=== PATIENT | female | born 1965 | race Caucasian/White ===

== ENCOUNTER 2016-11-24 08:56 | Inpatient (IN) | payer BC, MEDICAID ==
[2017-02-02] MEDS ORDERED: Povidone-Iodine 10% Soln 118.25 ML Bottle ONE (06:37)
[2017-02-02] MEDS ORDERED: Thrombin (Bovine) 5,000 Unit Kit ONE (06:37)
[2017-02-02] MEDS ORDERED: Naloxone 0.4 MG/ML SDV IVPUSH PRN (07:59)
[2017-02-02] MEDS ORDERED: HYDROmorphone/Normal Saline 15 MG/30 ML PCA IV PRN (07:59)
[2017-02-02] MEDS ORDERED: Lactated Ringers 1,000 ML IV SCH (08:00)
[2017-02-02] MEDS ORDERED: Naloxone 0.4 MG/ML SDV IV PRN (08:04)
[2017-02-02] MEDS ORDERED: ceFAZolin 2 GM in Sodium Chloride 0.9% 50 ML IV ONE ×2 (08:15→14:00)
[2017-02-02] MEDS ORDERED: ceFAZolin 2 GM in Premix Bag 1 BAG IV ONE (08:15)
[2017-02-02] MEDS ORDERED: Tranexamic Acid 800 MG in Sodium Chloride 0.9% 50 ML IV SCH (09:30)
[2017-02-02] MEDS ORDERED: Succinylcholine/Normal Saline 200 MG/10 ML Syringe ONE (10:06)
[2017-02-02] MEDS ORDERED: Neostigmine Methylsulfate 1 MG/ML 5 ML Syringe ONE (10:06)
[2017-02-02] MEDS ORDERED: Dexamethasone 4 MG/ML SDV ONE (10:06)
[2017-02-02] MEDS ORDERED: fentaNYL 250 MCG/5 ML SDV ONE ×2 (10:06→10:58)
[2017-02-02] MEDS ORDERED: Propofol 200 MG/20 ML SDV ONE (10:06)
[2017-02-02] MEDS ORDERED: Ondansetron 4 MG/2 ML SDV ONE (10:06)
[2017-02-02] MEDS ORDERED: Midazolam 1 MG/ML 2 ML SDV ONE (10:06)
[2017-02-02] MEDS ORDERED: Rocuronium 50 MG/5 ML Vial ONE ×2 (10:06→10:58)
[2017-02-02] MEDS ORDERED: Linezolid 200 MG/100 ML Bag IRR ONE ×2 (10:58→13:00)
[2017-02-02] MEDS: Tranexamic Acid 800 MG in Sodium Chloride 0.9% 50 ML IV SCH ×2 (12:05→13:42)
[2017-02-02] MEDS ORDERED: Lactated Ringers 1,000 ML ONE ×2 (12:34)
[2017-02-02] MEDS ORDERED: Acetaminophen 1,000 MG in Premix Bag 1 BAG IV ONE (13:45)
--- NOTE | 2017-02-02 14:16 | OR ---
DATE OF PROCEDURE: 02/02/2017 PREOPERATIVE DIAGNOSES: L5-S1 spondylolisthesis and foraminal stenosis. POSTOPERATIVE DIAGNOSES: L5-S1 spondylolisthesis and foraminal stenosis. PROCEDURE: 1. Anterior lumbar interbody fusion, L5-S1. 2. Insertion of globus anterior lumbar interbody fusion implant. 3. Use of Xemplifi Plus implant segmental instrumentation, L5-S1 with use of 325 mm screws. INDICATIONS: The patient was seen many months ago. We had trouble getting her in due to insurance approval, as her insurance changed. She had been suffering with back pain for a significant period of time. 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 This was limited in her ability severely, and she was unable to work for some period of time. Preoperative imaging with MRI and plain films confirmed the above-mentioned diagnosis. Risks and benefits of the procedure were explained to the patient. Informed consent was obtained. She was seen by Jason Raedr MD for anterior access. Please see Dr. Rader's note for anterior access. ESTIMATED BLOOD LOSS: Please see Dr. Rader's note. ANESTHESIA: General endotracheal intubation. FLUIDS: Lactated Ringer solution. COMPLICATIONS: None. SPECIMEN: None. DISPOSITION: Stable to PACU. DESCRIPTION OF PROCEDURE: After Dr. Rader performed the access in which it started with a time-out identifying the correct patient, the correct procedure, the correct site, and antibiotics had begun with appropriate period of time as well as sterile Alanis catheter had been placed, and the patient been prepped and draped in a sterile manner. He was able to obtain good access, more on the left side at L5-S1 interspace. I then used Bovie electrocautery to delineate and go through the anulus at L5-S1 medially on the left, but did get across midline. The anulus was removed with the pituitary to use a flat Garcia to go along the vertebral endplates and then removed disk material using pituitaries as well as straight and angled curettes. I used several wedges to distract the disk space and was able to get back to the posterior longitudinal ligament. There was a great deal of disk posteriorly, and this can be seen on the preoperative MRI. We did remove as much disk as possible. I then was able to scrape down to bone on the endplates. We then trialed and then inserted 8 degree 10 mm high implant. This was found to be in good position on AP and lateral fluoroscopy. I then inserted the Magnify torque handle and then used the implant to distract the disk space. We witnessed this on lateral fluoroscopy. After this had been accomplished, the graft was packed. Please note that was also packed prior to insertion, and then an awl, drill, and screws were used to place the screws, 1 up, 2 down. We then took AP and lateral films confirming the implant to be in good position. Please see Dr. Irwin Rader's note for closure. Jitendra Rader DO /[id number]
[2017-02-02] MEDS ORDERED: diphenhydrAMINE 50 MG/ML SDV IVPUSH PRN (14:55)
[2017-02-02] MEDS ORDERED: Methocarbamol 500 MG Tab PO PRN (14:56)
[2017-02-02] MEDS ORDERED: Dextrose 5%-Lactated Ringers 1,000 ML IV SCH (15:00)
[2017-02-02] MEDS: Acetaminophen 1,000 MG in Premix Bag 1 BAG IV SCH (20:37)
[2017-02-02] MEDS: Bisacodyl 5 MG Tab PO SCH (20:39)
[2017-02-02] MEDS: Venlafaxine 75 MG Cap.ER PO SCH (20:39)
[2017-02-02] MEDS: Sennosides 8.6 MG Tab PO SCH (20:40)
[2017-02-02] MEDS: Pregabalin 75 MG Cap PO SCH (20:42)
[2017-02-02] MEDS: ceFAZolin 2 GM in Sodium Chloride 0.9% 50 ML IV SCH (22:38)
[2017-02-02] MEDS: Ondansetron 4 MG/2 ML SDV IVPUSH PRN (22:39)
[2017-02-02] MEDS ORDERED: Scopolamine 1.5 MG Transdermal Patch TRDERM PRN (23:33)
[2017-02-02] MEDS ORDERED: Metoclopramide 10 MG/2 ML SDV IVPUSH PRN (23:34)
[2017-02-03] MEDS: Acetaminophen 1,000 MG in Premix Bag 1 BAG IV SCH (02:30)
[2017-02-03] MEDS: ceFAZolin 2 GM in Sodium Chloride 0.9% 50 ML IV SCH ×2 (05:15→13:32)
[2017-02-03] MEDS: Ondansetron 4 MG/2 ML SDV IVPUSH PRN (05:15)
[2017-02-03] MEDS: LEVOTHYROXINE PO SCH ×2 (07:24)
[2017-02-03] MEDS: Pantoprazole 40 MG Tab.CR PO SCH (07:24)
--- NOTE | 2017-02-03 07:45 | PN ---
DATE OF SERVICE: 02/03/2017 SUBJECTIVE: Zelda is postop day #1. She had some numbness going down her left outer leg and was started on dexamethasone per Jitendra Rader DO. Valium was given for muscle spasms. She is up sitting in the chair. Reports her pain is an 8/10. Requesting to start oral pain medication. Concerns of postop ileus. This was discussed with Jason Rader MD at the time of patient rounds. REVIEW OF SYSTEMS: Remainder of review of systems negative for any pertinent positives and negatives. OBJECTIVE: GENERAL: Zelda Chao is a pleasant 51-year-old female sitting up in the chair. She is alert and orientated. VITAL SIGNS: TPR is 98.9, 79, 18, blood pressure 123/88. HEENT: Negative. NECK: Supple. HEART: Regular rate and rhythm. LUNGS: The upper and the bases were clear. Upper and mid lobes were clear. EXTREMITIES: Negative. She has her back brace on. ABDOMEN: Abdominal binder is on. JACOB drain put out 3 mL of a pink serous drainage. Alanis is intact. Clear agnel urine. Total output 1500. ASSESSMENT: Anterior lumbar interbody fusion, L5-S1; insertion of globulus anterior lumbar interbody fusion implant; use of Xemplifi Plus implant segmental instrumentation, L5-S1 with use of 325 mm screws for L5-S1 spondylitis and foraminal stenosis via anterior abdominal approach. PLAN: 1. Discontinue Alanis catheter. 2. Percocet 5/325 of 1 to 2 every 4 hours p.r.n. pain. 3. Discontinue continuous pulse ox and PIT INSPECTOR. 4. Good pulmonary toilet encouraged. 5. We will evaluate p.r.n. or in a.m. Mag Perales PA-C /[id number]
[2017-02-03] MEDS: Enoxaparin 40 MG/0.4 ML Syringe SUBCUT SCH (08:02)
[2017-02-03] MEDS: Sennosides 8.6 MG Tab PO SCH ×2 (08:02→21:37)
[2017-02-03] MEDS: Bisacodyl 5 MG Tab PO SCH (08:02)
[2017-02-03] MEDS: Dexamethasone 4 MG/ML 5 ML MDV IVPUSH SCH ×3 (08:02→19:15)
[2017-02-03] MEDS: Venlafaxine 75 MG Cap.ER PO SCH ×2 (08:02→21:36)
[2017-02-03] MEDS: Pregabalin 75 MG Cap PO SCH ×2 (08:05→21:36)
[2017-02-03] MEDS: Acetaminophen/oxyCODONE 325-5 MG Tab PO PRN ×4 (08:51→21:36)
[2017-02-03] MEDS ORDERED: Diazepam 5 MG Tab PO PRN (14:54)
--- NOTE | 2017-02-03 16:16 | PCM.PN ---
- General Info Date of Service: 02/03/17 Admission Dx/Problem (Free Text): 1-year-old female who is postop day 1 the anterior fusion of L5-S1. She is doing very well. She is having slight tingling on her left side. She states she is having no other issues. She's not been ambulating in doing well she has minimal pain issues at this time. Functional Status: Reports: pain controlled, tolerating diet, ambulating, urinating - Patient Data Vitals - most recent: Last Vital Signs Temp 37.5 C 02/03/17 15:40 Pulse 92 02/03/17 15:40 Resp 16 02/03/17 15:40 BP 133/85 02/03/17 15:40 Pulse Ox 96 02/03/17 15:40 Weight - most recent: 174 lb 12.8 oz I&O - last 24 hours: Intake & Output 02/03/17 02/03/17 02/03/17 06:59 14:59 22:59 Intake Total 7398 715 0283 Output Total 1353 700 900 Balance 537 -300 148 Med Orders - Current: Current Medications Dexamethasone (Dexamethasone) 10 mg IVPUSH Q6H [facility] Last Admin: 02/03/17 13:35 Dose: 10 mg Diazepam (Valium) 5 mg IV Q6H PRN PRN Reason: Muscle Spasm Last Admin: 02/03/17 12:04 Dose: 5 mg Diazepam (Valium.) 5 mg PO Q6H PRN PRN Reason: muscle spasms Diphenhydramine HCl (Benadryl) 25 - 50 mg IVPUSH Q4H PRN PRN Reason: Itching Enoxaparin Sodium (Lovenox) 40 mg SUBCUT DAILY [facility] Last Admin: 02/03/17 08:02 Dose: 40 mg Cefazolin Sodium 2 gm/ Sodium (Chloride) 50 mls @ 100 mls/hr IV Q8HR [facility] Last Admin: 02/03/17 13:32 Dose: 100 mls/hr Levothyroxine Sodium 25 mcg/ (Levothyroxine Sodium 100 mcg) 125 mcg PO DAILY@ 0730 [facility] Last Admin: 02/03/17 07:24 Dose: 125 mcg Methocarbamol (Robaxin) 1,000 mg PO QID PRN PRN Reason: Muscle Spasm Metoclopramide HCl (Reglan) 10 mg IVPUSH Q6H PRN PRN Reason: Nausea Miscellaneous Information (Remove Patch) 1 ea TRDERM Q72H [facility] Ondansetron HCl (Zofran) 4 mg IVPUSH Q4H PRN PRN Reason: Nausea Last Admin: 02/03/17 05:15 Dose: 4 mg Oxycodone/Acetaminophen (Percocet 325-5 Mg) 1 - 2 tab PO Q4H PRN PRN Reason: paiin Last Admin: 02/03/17 13:32 Dose: 2 tab Pantoprazole Sodium (Protonix) 40 mg PO ACBREAKFAST [facility] Last Admin: 02/03/17 07:24 Dose: 40 mg Pregabalin (Lyrica) 75 mg PO BID [facility] Last Admin: 02/03/17 08:05 Dose: 75 mg Scopolamine (Transderm-Scop) 1.5 mg TRDERM Q72H PRN PRN Reason: Nausea Last Admin: 02/02/17 23:48 Dose: 1.5 mg Senna (Senna) 8.6 mg PO BID [facility] Last Admin: 02/03/17 08:02 Dose: 8.6 mg Venlafaxine HCl (Effexor Xr) 75 mg PO BID [facility] Last Admin: 02/03/17 08:02 Dose: 75 mg Discontinued Medications Bisacodyl (Dulcolax) 10 mg PO BID [facility] Last Admin: 02/03/17 08:02 Dose: 10 mg Dexamethasone (Dexamethasone) Confirm Administered Dose 4 mg .ROUTE .STK-MED ONE Stop: 02/02/17 10:07 Fentanyl (Sublimaze) Confirm Administered Dose 250 mcg .ROUTE .STK-MED ONE Stop: 02/02/17 10:07 Fentanyl (Sublimaze) Confirm Administered Dose 250 mcg .ROUTE .STK-MED ONE Stop: 02/02/17 10:59 Glycopyrrolate () Confirm Administered Dose 1 mg .ROUTE .STK-MED ONE Stop: 02/02/17 10:07 Hydromorphone HCl (Dilaudid [employer] Machinist 15 Mg In Ns 30 Ml) 0 mg IV ASDIRECTED PRN; Protocol PRN Reason: Pain Last Admin: 02/02/17 08:05 Dose: 0.3 mg Lactated Ringer's (Ringers, Lactated) 1,000 mls @ 100 mls/hr IV ASDIRECTED [facility] Last Admin: 02/02/17 08:28 Dose: 100 mls/hr Cefazolin Sodium 2 gm/ Sodium (Chloride) 50 mls @ 100 mls/hr IV ONETIME ONE Stop: 02/02/17 08:44 Last Admin: 02/02/17 10:09 Dose: 100 mls/hr Tranexamic Acid 800 mg/ Sodium (Chloride) 58 mls @ 232 mls/hr IV Q3H [facility] Stop: 02/02/17 12:59 Last Admin: 02/02/17 13:42 Dose: 232 mls/hr Linezolid (Zyvox) Confirm Administered Dose 100 mls @ as directed .ROUTE .STK- MED ONE Stop: 02/02/17 10:40 Lactated Ringer's (Ringers, Lactated) Confirm Administered Dose 1,000 mls @ as directed .ROUTE .STK-MED ONE Stop: 02/02/17 12:35 Lactated Ringer's (Ringers, Lactated) Confirm Administered Dose 1,000 mls @ as directed .ROUTE .STK-MED ONE Stop: 02/02/17 12:35 Cefazolin Sodium 2 gm/ Sodium (Chloride) 50 mls @ 100 mls/hr IV ONETIME ONE Stop: 02/02/17 14:29 Last Admin: 02/02/17 14:07 Dose: 100 mls/hr Linezolid (Zyvox) Confirm Administered Dose 100 mls @ as directed .ROUTE .STK- MED ONE Stop: 02/02/17 13:08 Acetaminophen 1,000 mg/ Premix 100 mls @ 400 mls/hr IV NOW ONE Stop: 02/02/17 13:59 Last Admin: 02/02/17 13:41 Dose: 400 mls/hr Acetaminophen 1,000 mg/ Premix 100 mls @ 400 mls/hr IV Q6H [facility] Stop: 02/03/17 02:14 Last Admin: 02/03/17 02:30 Dose: 400 mls/hr Dextrose/Lactated Ringer's (Dextrose 5%-Lactated Ringers) 1,000 mls @ 175 mls/ hr IV ASDIRECTED [facility] Last Admin: 02/02/17 23:55 Dose: 175 mls/hr Linezolid (Zyvox) 200 mg IRR .STK-MED ONE Stop: 02/02/17 10:59 Last Admin: 02/02/17 10:58 Dose: 200 mg Linezolid (Zyvox) 200 mg IRR .STK-MED ONE Stop: 02/02/17 13:01 Last Admin: 02/02/17 13:00 Dose: 200 mg Midazolam HCl (Versed 1 Mg/Ml) Confirm Administered Dose 2 mg .ROUTE .STK-MED ONE Stop: 02/02/17 10:07 Naloxone HCl (Narcan) 0.1 mg IV ASDIRECTED PRN PRN Reason: decreased respiratory rate Neostigmine Methylsulfate (Neostigmine) Confirm Administered Dose 5 mg .ROUTE .STK-MED ONE Stop: 02/02/17 10:07 Ondansetron HCl (Zofran) Confirm Administered Dose 4 mg .ROUTE .STK-MED ONE Stop: 02/02/17 10:07 Povidone Iodine (Betadine 10% Soln) Confirm Administered Dose 1 ml .ROUTE .STK- MED ONE Stop: 02/02/17 06:38 Propofol (Diprivan 20 Ml) Confirm Administered Dose 200 mg .ROUTE .STK-MED ONE Stop: 02/02/17 10:07 Rocuronium [place] (Zemuron) Confirm Administered Dose 50 mg .ROUTE .STK-MED ONE Stop: 02/02/17 10:07 Rocuronium [place] (Zemuron) Confirm Administered Dose 50 mg .ROUTE .STK-MED ONE Stop: 02/02/17 10:59 Succinylcholine Chloride (Succinylcholine In Ns Pf) Confirm Administered Dose 200 mg .ROUTE .STK-MED ONE Stop: 02/02/17 10:07 Thrombin (Thrombin-Jmi) Confirm Administered Dose 10,000 unit .ROUTE .STK-MED ONE Stop: 02/02/17 06:38 - Exam General: alert, oriented Back Exam: normal inspection Extremities: no edema Skin: warm, dry, intact Wound/Incisions: healing well Neurological: no new focal deficit, normal gait, normal speech, normal tone, strength equal bilateral, reflexes equal bilateral, sensation intact, cranial nerves intact Psy/Mental Status: alert, normal affect, normal mood - Problem List & Annotations (1) Status post lumbar and lumbosacral fusion by anterior technique SNOMED Code(s): 809779626, 632437970, 263493547 Code(s): Z98.1 - ARTHRODESIS STATUS Status: Acute Current Visit: Yes - Problem List Review Problem List Initiated/Reviewed/Updated: Yes - My Orders Last 24 Hours: My Active Orders 02/03/17 14:54 Diazepam [Valium] 5 mg PO Q6H PRN 02/03/17 14:58 Convert IV to Saline Lock [OM.PC] Routine - Plan Plan:: at this time Zelda is doing well. We will start dexamethasone for her left sided numbness and tingling. We will plan on continuing with PT OT and pain management at this time. We will have her plan for discharge tomorrow. He should switch to all oral medications at this time. We will send the patient home on Valium and Atarax tomorrow I did educate her on these medications. Patient was in agreement with this plan and will see her again in the morning. She is to notify me if she has any other issues.
[2017-02-04] MEDS: Dexamethasone 4 MG/ML 5 ML MDV IVPUSH SCH ×2 (01:47→08:41)
[2017-02-04 07:05] VITALS: BP 123/80
[2017-02-04] MEDS: LEVOTHYROXINE PO SCH ×2 (07:23)
[2017-02-04] MEDS: Pantoprazole 40 MG Tab.CR PO SCH (07:23)
[2017-02-04] MEDS: Acetaminophen/oxyCODONE 325-5 MG Tab PO PRN (08:05)
[2017-02-04] MEDS: Venlafaxine 75 MG Cap.ER PO SCH (08:06)
[2017-02-04] MEDS: Enoxaparin 40 MG/0.4 ML Syringe SUBCUT SCH (08:06)
[2017-02-04] MEDS: Sennosides 8.6 MG Tab PO SCH (08:07)
[2017-02-04] MEDS: Pregabalin 75 MG Cap PO SCH (08:09)
--- NOTE | 2017-02-04 09:14 | PCM.DCSUM1 ---
Discharge Summary - Hospital Course Free Text/Narrative:: Zelda is a 51 year old female who is POD 2 of a anterior fusion of L5-S1. She is doing well. She is tolerating her pain with oral pain medication. PT/OT is going well. She states that she is having diarrhea from the antibiotics. She is tolerating her diet well. - Discharge Data Discharge Date: 02/04/17 Discharge Disposition: Home, Self-Care 01 Condition: Good - Discharge Diagnosis/Problem(s) (1) Status post lumbar and lumbosacral fusion by anterior technique SNOMED Code(s): 349227120, 528307036, 910172820 ICD Code: Z98.1 - ARTHRODESIS STATUS Status: Acute Current Visit: Yes - Patient Summary/Data Consults: Consultations 02/03/17 08:00 Consult to Physical Therapy [PT Evaluation and Treatment] [CONS] Routine Please Evaluate and Treat. PT Reason for Consult: post op instructions for anterior interbody lumbar fusion This query below is only for informational purposes and is not editable. Admission Diagnosis/Problem: Lumbar spondylosis OT Evaluation and Treatment [CONS] Routine Please Evaluate and Treat. OT Reason for Consult: post op instructions for anterior interbody lumbar fusion Pending Discharge: No This query below is only for informational purposes and is not editable. Admission Diagnosis/Problem: Lumbar spondylosis - Patient Instructions Diet: Usual Diet as Tolerated, Drink 8-10+ Glasses/Day Activity, Other: Activity per Dr. Escobar Rader's recommendations Driving: Do Not Drive (while on pain medication) Driving, Other: while on narcotics Showering/Bathing: May Shower Wound/Incision Care: Keep Operative Site/Wound Site Clean and Dry Notify Provider of: Fever, Increased Pain, Nausea and/or Vomiting Other/Special Instructions: Use incentive inspirometer 10 times in a row every hour while awake. - Discharge Plan Prescriptions/Med Rec: Acetaminophen/oxyCODONE [Percocet 325-5 MG] 1 - 2 tab PO Q4H PRN #50 tablet PRN Reason: Pain Diazepam [Valium] 5 mg PO Q6H PRN #30 tablet PRN Reason: muscle spasms hydrOXYzine HCl [Atarax] 25 mg PO TID PRN #30 ml PRN Reason: Spasms Home Medications: Home Meds Fluocinonide [Lidex 0.05% Crm] 1 applic TOP BID 09/07/16 [History] Levothyroxine Sodium [Synthroid] 125 mcg PO DAILY 09/07/16 [History] Loratadine/Pseudoephedrine [Claritin-D 24 Hour Tablet] 1 each PO DAILY 09/07/16 [History] Methocarbamol [Robaxin] 1,000 mg PO QID 09/07/16 [History] Oxaprozin [Daypro] 1,200 mg PO DAILY 09/07/16 [History] Pantoprazole [ProTONIX] 40 mg PO DAILY 09/07/16 [History] Pregabalin [Lyrica] 75 mg PO BID 09/07/16 [History] Venlafaxine HCl [Venlafaxine ER] 75 mg PO BID 09/07/16 [History] Butalb/Acetaminophen/Caffeine [Xiqpgx-Kqtestjy-Rbnn 50-325-40] 1 tab PO Q4HR PRN 02/01/17 [History] Acetaminophen/oxyCODONE [Percocet 325-5 MG] 1 - 2 tab PO Q4H PRN #50 tablet [Rx] Diazepam [Valium] 5 mg PO Q6H PRN #30 tablet 02/04/17 [Rx] hydrOXYzine HCl [Atarax] 25 mg PO TID PRN #30 ml 02/04/17 [Rx] Referrals: Mag Perales PA-C [Physician [employer]ilk Drier Operator] - 02/12/17 10:00 am Jitendra Rader DO [Physician] - (Make an appointment to be seen for follow up in 1 month ) - Discharge Summary/Plan Comment DC Time >30 min.: No Discharge Summary/Plan Comment: Zelda is to follow up with Dr. Irwin Rader in 8 days and follow up with Toshia Syed NP in 1 month. She is to continue with dressing changes as directed. She is to notify us if she has any difficulties. - Patient Data Vitals - Most Recent: Last Vital Signs Temp 36.6 C 02/04/17 07:00 Pulse 77 02/04/17 07:00 Resp 18 02/04/17 07:00 BP 123/80 02/04/17 07:00 Pulse Ox 96 02/04/17 07:00 Weight - Most Recent: 174 lb 12.8 oz I&O - Last 24 hours: Intake & Output 02/03/17 02/04/17 02/04/17 22:59 06:59 14:59 Intake Total 1648 600 Output Total 1702 0 Balance -54 600 Med Orders - Current: Current Medications Dexamethasone (Dexamethasone) 10 mg IVPUSH Q6H [facility] Last Admin: 02/04/17 08:41 Dose: 10 mg Diazepam (Valium) 5 mg IV Q6H PRN PRN Reason: Muscle Spasm Last Admin: 02/03/17 12:04 Dose: 5 mg Diazepam (Valium.) 5 mg PO Q6H PRN PRN Reason: muscle spasms Last Admin: 02/03/17 19:14 Dose: 5 mg Diphenhydramine HCl (Benadryl) 25 - 50 mg IVPUSH Q4H PRN PRN Reason: Itching Enoxaparin Sodium (Lovenox) 40 mg SUBCUT DAILY [facility] Last Admin: 02/04/17 08:06 Dose: 40 mg Levothyroxine Sodium 25 mcg/ (Levothyroxine Sodium 100 mcg) 125 mcg PO DAILY@ 0730 [facility] Last Admin: 02/04/17 07:23 Dose: 125 mcg Methocarbamol (Robaxin) 1,000 mg PO QID PRN PRN Reason: Muscle Spasm Last Admin: 02/03/17 21:37 Dose: 1,000 mg Metoclopramide HCl (Reglan) 10 mg IVPUSH Q6H PRN PRN Reason: Nausea Miscellaneous Information (Remove Patch) 1 ea TRDERM Q72H [facility] Last Admin: 02/04/17 08:09 Dose: 1 ea Ondansetron HCl (Zofran) 4 mg IVPUSH Q4H PRN PRN Reason: Nausea Last Admin: 02/03/17 05:15 Dose: 4 mg Oxycodone/Acetaminophen (Percocet 325-5 Mg) 1 - 2 tab PO Q4H PRN PRN Reason: paiin Last Admin: 02/04/17 08:05 Dose: 2 tab Pantoprazole Sodium (Protonix) 40 mg PO ACBREAKFAST [facility] Last Admin: 02/04/17 07:23 Dose: 40 mg Pregabalin (Lyrica) 75 mg PO BID [facility] Last Admin: 02/04/17 08:09 Dose: 75 mg Scopolamine (Transderm-Scop) 1.5 mg TRDERM Q72H PRN PRN Reason: Nausea Last Admin: 02/02/17 23:48 Dose: 1.5 mg Senna (Senna) 8.6 mg PO BID [facility] Last Admin: 02/04/17 08:07 Dose: Not Given Venlafaxine HCl (Effexor Xr) 75 mg PO BID [facility] Last Admin: 02/04/17 08:06 Dose: 75 mg Discontinued Medications Bisacodyl (Dulcolax) 10 mg PO BID [facility] Last Admin: 02/03/17 08:02 Dose: 10 mg Dexamethasone (Dexamethasone) Confirm Administered Dose 4 mg .ROUTE .STK-MED ONE Stop: 02/02/17 10:07 Fentanyl (Sublimaze) Confirm Administered Dose 250 mcg .ROUTE .STK-MED ONE Stop: 02/02/17 10:07 Fentanyl (Sublimaze) Confirm Administered Dose 250 mcg .ROUTE .STK-MED ONE Stop: 02/02/17 10:59 Glycopyrrolate () Confirm Administered Dose 1 mg .ROUTE .STK-MED ONE Stop: 02/02/17 10:07 Hydromorphone HCl (Dilaudid [employer] 15 Mg In Ns 30 Ml) 0 mg IV ASDIRECTED PRN; Protocol PRN Reason: Pain Last Admin: 02/02/17 08:05 Dose: 0.3 mg Lactated Ringer's (Ringers, Lactated) 1,000 mls @ 100 mls/hr IV ASDIRECTED [facility] Last Admin: 02/02/17 08:28 Dose: 100 mls/hr Cefazolin Sodium 2 gm/ Sodium (Chloride) 50 mls @ 100 mls/hr IV ONETIME [facility] Stop: 02/02/17 08:44 Last Admin: 02/02/17 10:09 Dose: 100 mls/hr Tranexamic Acid 800 mg/ Sodium (Chloride) 58 mls @ 232 mls/hr IV Q3H [facility] Stop: 02/02/17 12:59 Last Admin: 02/02/17 13:42 Dose: 232 mls/hr Linezolid (Zyvox) Confirm Administered Dose 100 mls @ as directed .ROUTE .STK- MED ONE Stop: 02/02/17 10:40 Lactated Ringer's (Ringers, Lactated) Confirm Administered Dose 1,000 mls @ as directed .ROUTE .STK-MED ONE Stop: 02/02/17 12:35 Lactated Ringer's (Ringers, Lactated) Confirm Administered Dose 1,000 mls @ as directed .ROUTE .STK-MED ONE Stop: 02/02/17 12:35 Cefazolin Sodium 2 gm/ Sodium (Chloride) 50 mls @ 100 mls/hr IV ONETIME ONE Stop: 02/02/17 14:29 Last Admin: 02/02/17 14:07 Dose: 100 mls/hr Linezolid (Zyvox) Confirm Administered Dose 100 mls @ as directed .ROUTE .STK- MED ONE Stop: 02/02/17 13:08 Acetaminophen 1,000 mg/ Premix 100 mls @ 400 mls/hr IV NOW ONE Stop: 02/02/17 13:59 Last Admin: 02/02/17 13:41 Dose: 400 mls/hr Acetaminophen 1,000 mg/ Premix 100 mls @ 400 mls/hr IV Q6H [facility] Stop: 02/03/17 02:14 Last Admin: 02/03/17 02:30 Dose: 400 mls/hr Cefazolin Sodium 2 gm/ Sodium (Chloride) 50 mls @ 100 mls/hr IV Q8HR [facility] Last Admin: 02/03/17 13:32 Dose: 100 mls/hr Dextrose/Lactated Ringer's (Dextrose 5%-Lactated Ringers) 1,000 mls @ 175 mls/ hr IV ASDIRECTED [facility] Last Admin: 02/02/17 23:55 Dose: 175 mls/hr Linezolid (Zyvox) 200 mg IRR .STK-MED ONE Stop: 02/02/17 10:59 Last Admin: 02/02/17 10:58 Dose: 200 mg Linezolid (Zyvox) 200 mg IRR .STK-MED ONE Stop: 02/02/17 13:01 Last Admin: 02/02/17 13:00 Dose: 200 mg Midazolam HCl (Versed 1 Mg/Ml) Confirm Administered Dose 2 mg .ROUTE .STK-MED ONE Stop: 02/02/17 10:07 Naloxone HCl (Narcan) 0.1 mg IV ASDIRECTED PRN PRN Reason: decreased respiratory rate Neostigmine Methylsulfate (Neostigmine) Confirm Administered Dose 5 mg .ROUTE .STK-MED ONE Stop: 02/02/17 10:07 Ondansetron HCl (Zofran) Confirm Administered Dose 4 mg .ROUTE .STK-MED ONE Stop: 02/02/17 10:07 Povidone Iodine (Betadine 10% Soln) Confirm Administered Dose 1 ml .ROUTE .STK- MED ONE Stop: 02/02/17 06:38 Propofol (Diprivan 20 Ml) Confirm Administered Dose 200 mg .ROUTE .STK-MED ONE Stop: 02/02/17 10:07 Rocuronium [place] (Zemuron) Confirm Administered Dose 50 mg .ROUTE .STK-MED ONE Stop: 02/02/17 10:07 Rocuronium [place] (Zemuron) Confirm Administered Dose 50 mg .ROUTE .STK-MED ONE Stop: 02/02/17 10:59 Succinylcholine Chloride (Succinylcholine In Ns Pf) Confirm Administered Dose 200 mg .ROUTE .STK-MED ONE Stop: 02/02/17 10:07 Thrombin (Thrombin-Jmi) Confirm Administered Dose 10,000 unit .ROUTE .STK-MED ONE Stop: 02/02/17 06:38 *Q Meaningful Use (DIS) - VTE *Q VTE Criteria *Q: - Stroke *Q Stroke Criteria *Q: - AMI *Q AMI Criteria *Q:
--- NOTE | 2017-02-04 23:07 | DISCH ---
ADMISSION DIAGNOSES: Back pain, bilateral foraminal stenosis at L5-S1, retrolisthesis of L5 on S1. DISCHARGE DIAGNOSES: Anterior lumbar interbody fusion L5-S1, insertion of globulus anterior lumbar interbody fusion implant, use of Xemplifi Plus implant segmental instrumentation, L5- S1 with use of 325 mm screws for L5-S1 spondylitis and foraminal stenosis via anterior abdominal approach. Date of surgery 02/03/2017. HISTORY: Zelda Rinaldi has had a longstanding history of abdominal pain with failure of non operative treatment including nonsteroidal anti-inflammatories, multiple injection, TENS unit. After preoperative evaluation and discussion of possible risks and possible complications, she wished to proceed with surgical procedure. HOSPITAL COURSE: Zelda had her surgery on 02/03/2017. She had no operative complications. On postop day #2, she was changed to oral pain medication, started on a regular diet. She was seen by Physical Therapy. On postop day #3, her vital signs were stable. Pain was well managed. Activity was good. She had no postoperative complications. She did have bowel movements. Zelda was ready to be discharged to home on 02/04/2017. PHYSICAL EXAMINATION: GENERAL: Zelda is a pleasant 51-year-old female. VITAL SIGNS: Height is 5 feet 3 inches. Weight is 174 pounds. TPR is 97.8, 77, 18. Blood pressure 123/80. HEENT: Negative. NECK: Supple. HEART: Regular rate and rhythm. LUNGS: Clear. ABDOMEN: Maylin in place. Aquacel dressing has been removed. Abdominal binder is on. EXTREMITIES: Without peripheral edema and full range of motion. DISPOSITION: Discharged to home. CONDITION: Stable and improving. FOLLOWUP: With Mag Perales PA-C, on 02/12/2017 at 10:00 a.m. She is to follow up with Jitendra Rader DO at [facility] in 1 month. Appointment to be made, outpatient physical therapy starting WednesdayFebruary 08 at 0900. HOME MEDICATIONS: Percocet 5/325 mg 1 to 2 every 4 hours p.r.n. pain #50, Valium 5 mg oral q.6 hours p.r.n. muscle spasms #30. She is to resume her home medications of Lidex 1 applicator topical twice daily, levothyroxine 125 mcg oral daily, Claritin-D 24 hour tablet one daily, Robaxin 1000 mg oral 4 times a day, Daypro 1200 mg oral daily, Protonix 40 mg oral daily, Lyrica 75 mg oral daily, venlafaxine 75 mg oral twice daily, Ultram 100 mg oral every 8 hours p.r.n. pain should be held while taking the Percocet. DIET: Usual diet as tolerated. Drink 8 to 10 glasses of water a day. ACTIVITY: Activity per Dr. Jitendra Rader's recommendation. Driving, do not drive on pain medication. Shower bathing, may shower. Notify provider if any fever, increased pain, nausea, or vomiting. Wound incision care. Wear abdominal binder for 6 weeks and then as tolerated. SPECIAL INSTRUCTION: Use incentive spirometer 10 times in a row every hour while awake.
--- NOTE | 2017-02-08 09:10 | OR ---
DATE OF PROCEDURE: 02/02/2017 PREOPERATIVE DIAGNOSIS: Lumbar spinal stenosis involving L5-S1. PROCEDURE: Retroperitoneal exposure of L5-S1 to facilitate anterior interbody lumbar fusion (75893). ANESTHESIA: General. MOTION PICTURE ACTOR: GRAEME Munoz. INDICATION FOR PROCEDURE: This 51-year-old female is undergoing a A-Lift procedure involving the L5-S1 level. The plan will be to provide exposure of this via retroperitoneal approach. Potential risks of the procedure were reviewed with the patient both at the time of consultation as well as today including bleeding, infection, injury to the viscera, injury to the ureter, vascular injury, potentially requiring a process such as thrombectomy, stent placement, or a femorofemoral bypass were all reviewed with the patient, and the remote possibly of cardiopulmonary, septic, or hemorrhagic complications, specifically a large blood loss due to vascular injury intraoperatively were gone over and the patient wishes to proceed. DETAILS OF PROCEDURE: The patient was taken to the operating room. After general endotracheal anesthesia was induced, the neurosensory probe was replaced. The patient was placed in supine position with a roll underneath the left hip to loosen the psoas muscle at that level and a Alanis catheter was inserted. The abdomen was then prepped and draped. A left paramedian incision was then made and carried down through the skin and subcutaneous tissue. Subcutaneous flaps were then raised and following this, the rectus sheath incised a few cm left of the midline. This allowed dissection of the rectus muscle away from the posterior peritoneum inferiorly into the posterior rectus sheath more superiorly. The posterior rectus sheath above the linea semilunaris was then divided. This allowed dissection into the retroperitoneal plane behind the more lateral abdominal wall musculature. This was carried down to the level of the psoas muscle and the peritoneum then swept medially to the point somewhat medial to the inferior vena cava, care was taken to sweep the neuroplexus over the area inferior to the bifurcation of the aorta and vena cava as well as left ureter up with the peritoneum. At this point, the uterosacral vessels as well as the median sacral vessels were divided and the attachments to the left iliac vein were dissected free. Eventually, this allowed a more or less right-angled retraction of the left iliac vein and the left iliac artery. During this exposure, good pulsation was confirmed within the left iliac artery with the procedure. The retractors were then placed and blunt dissection with Gelacio over the anterior aspect of the L5-S1 interspace was conducted such that adequate exposure was obtained for the interbody fusion. Under a separate dictation, Dr. Jitendra Rader then did the disk resection and interbody fusion and the graft. At this point with this phase being completed, the area was inspected. No bleeding or other problems noted. The area was irrigated with a Zyvox-containing saline solution and the retractors sequentially removed with no bleeding or other problems noted. The left iliac vein was inspected. No clots or other problems were noted and the patient continued to have good pulsations within the external and internal iliac arteries distal to the level of the retraction and subsequently was noted to have an intact dorsalis pedis on both feet. At this point, the anterior rectus sheath was then closed with a running #2 Vicryl stitch, a 10-Yi Caesar-Logan drain was then placed into the subcutaneous tissue, over which a subcutaneous layer of 3-0 Vicryl stitch was placed and the skin closed with mitesh. The drain was affixed with some 4-0 Vicryl stitch and the patient was taken to the recovery room in a satisfactory condition. Jason Rader MD /[id number]
== END 2017-02-04 10:25 | disposition home or self-care (01) | DRG 460 ==
LOC: JP.SDS 02-02 07:21 → JP.MS 02-02 07:21 → JP.SDS 02-02 14:36 → JP.MS 02-02 14:36 → EDSTATUS 02-03 09:30
PROVIDERS: ADMIT Orthopaedic Surgery; ATTEND Orthopaedic Surgery
PROC: 0SG30A0 Fusion of Lumbosacral Joint with Interbody Fusion Device, Anterior Approach, Anterior Column, Open Approach (ICD-10-PCS; principal; 2017-02-02)
PROC: 0QH004Z Insertion of Internal Fixation Device into Lumbar Vertebra, Open Approach (ICD-10-PCS; principal; 2017-02-02)
DX: M43.17 Spondylolisthesis, lumbosacral region (principal); M48.07 Spinal stenosis, lumbosacral region; R20.2 Paresthesia of skin
CPT/HCPCS: 36415; 76001; 86850; 86900; 86901; 86920; 86922; 94667; 94762; 97110-GP; 97116-GP; 97161-GP; 97165-GO; 97530-GP; 97535-GP; A9270-GY; C1713; J0131; J0690; J1100; J1170; J1650; J2020; J2250; J2405; J2704; J3010; J3360; J7042; J7050; J7120

== ENCOUNTER 2017-02-20 19:48 | Inpatient (IN) | payer MEDICAID ==
--- NOTE | 2017-02-20 20:49 | EDM.PDOC ---
ED HPI GENERAL MEDICAL PROBLEM - General Chief Complaint: Wound Recheck Stated Complaint: INCISION INFECTED Time Seen by Provider: 02/20/17 20:44 Source of Information: Reports: Patient, Family, Old records, RN notes reviewed History Limitations: Reports: No limitations - History of Present Illness INITIAL COMMENTS - FREE TEXT/NARRATIVE: 51-year-old female presents emergency department today wound check, she is postop day 18 for lumbar surgery anterior approach was evaluated in clinic yesterday mitesh removed unfortunately now she has had thick purulent drainage and an opening of the wound, she was placed on doxycycline Middle Abdomen Pain Score (Numeric/FACES): 2 - Related Data Allergies Allergy/AdvReac Type Severity Reaction Status Date / Time hydrocodone bitartrate Allergy Mild Itching Verified 02/04/17 09:40 [From Vicodin] Sulfa (Sulfonamide Allergy Rash Verified 02/02/17 07:44 Antibiotics) Home Meds: Home Meds Levothyroxine Sodium [Synthroid] 125 mcg PO DAILY 09/07/16 [History] Loratadine/Pseudoephedrine [Claritin-D 24 Hour Tablet] 1 each PO DAILY 09/07/16 [History] Oxaprozin [Daypro] 1,200 mg PO DAILY 09/07/16 [History] Pantoprazole [ProTONIX] 40 mg PO DAILY 09/07/16 [History] Pregabalin [Lyrica] 75 mg PO BID 09/07/16 [History] Venlafaxine HCl [Venlafaxine ER] 75 mg PO BID 09/07/16 [History] Butalb/Acetaminophen/Caffeine [Wbilbj-Vrirbodq-Gsgi 50-325-40] 1 tab PO Q4HR PRN 02/01/17 [History] hydrOXYzine HCl [Atarax] 25 mg PO TID PRN #30 ml 02/04/17 [Rx] Doxycycline [Vibramycin] 100 mg PO Q12H 02/20/17 [History] oxyCODONE 5 mg PO Q4H PRN 02/20/17 [History] Past Medical History HEENT History: Reports: Impaired vision Gastrointestinal History: Reports: Irritable bowel syndrome HORSE WRANGLER History: Reports: Musculoskeletal History: Reports: Back pain, chronic, Fibromyalgia, Other (see below) Other Musculoskeletal History: GENERATIVE ARITHRITIS Neurological History: Reports: Migraines Psychiatric History: Reports: Anxiety Endocrine/Metabolic History: Reports: Hypothyroidism Hematologic History: Reports: Blood transfusion(s) Other Hematologic History: had ? reaction Oncologic (Cancer) History: Reports: Breast Dermatologic History: Reports: Eczema - Infectious Disease History Infectious Disease History: Reports: Chicken pox - Past Surgical History HEENT Surgical History: Reports: Other (see below) Other HEENT Surgeries/Procedures: THROAT POLYPS REMOVED 4 YEARS AGO GI Surgical History: Reports: Appendectomy Female Surgical History: Reports: Hysterectomy Other Female Surgeries/Procedures: PT HAD A TUMOR REMOVED FROM FEMALE ORGANS BUT DOES NOT REMEMBER WHAT AT [facility] Neurological Surgical History: Reports: Lumbar spine Oncologic Surgical History: Reports: Lumpectomy Dermatological Surgical History: Reports: None Social & Family History - Family History Family Medical History: Noncontributory - Tobacco Use Smoking Status *Q: Current Every Day Smoker Years of Tobacco use: 34 Packs/Tins Daily: 1 Used Tobacco, but Quit: No Second Hand Smoke Exposure: No - Caffeine Use Caffeine Use: Reports: Soda - Recreational Drug Use Recreational Drug Use: No ED ROS GENERAL - Review of Systems Review Of Systems: See Below Constitutional: Reports: fever (Yesterday) HEENT: Reports: No symptoms Respiratory: Reports: No Symptoms Cardiovascular: Reports: No symptoms GI/Abdominal: Reports: No symptoms : Reports: no symptoms Skin: Reports: wound, change in color, other (Drainage) Neurological: Reports: No Symptoms ED EXAM, GENERAL - Physical Exam Exam: See Below Free Text/Narrative:: Examination the wound it is open top layer of thick purulent discharge is present approximately 1 cm throughout the wound there is about 1 cm of erythema around the wound tender to touch I don't appreciate much erythema Exam Limited By: No limitations General Appearance: alert, WD/WN, no apparent distress Respiratory/Chest: no respiratory distress, lungs clear, normal breath sounds, no accessory muscle use Cardiovascular: regular rate, rhythm, no murmur Course - Vital Signs Last Recorded V/S: Last Vital Signs Temp 96.5 F 02/20/17 20:02 Pulse 111 H 02/20/17 20:02 Resp 16 02/20/17 20:02 BP 113/82 02/20/17 20:02 Pulse Ox 97 02/20/17 20:02 - Orders/Labs/Meds Orders: Active Orders 24 hr Category Date Time Status Peripheral IV Care [RC] . DIRECTED Care 02/20/17 21:30 Ordered Sodium Chloride 0.9% [Saline Flush] Med 02/20/17 21:30 Ordered 10 ml FLUSH ASDIRECTED PRN Peripheral IV Insertion Adult [OM.PC] Urgent Oth 02/20/17 21:30 Ordered Labs: Laboratory Tests 02/20/17 02/20/17 02/20/17 Range/Units 20:57 20:57 20:57 WBC 11.3 H (4.5-11.0) K/uL RBC 4.26 (3.30-5.50) M/uL Hgb 12.8 (12.0-15.0) g/dL Hct 38.5 (36.0-48.0) % MCV 90 (80-98) fL MCH 30 (27-31) pg MCHC 33 (32-36) % Plt Count 379 (150-400) K/uL Neut % (Auto) 59 (36-66) % Lymph % (Auto) 30 (24-44) % [place]ack[place]ord % (Auto) 8 H (2-6) % Eos % (Auto) 2 (2-4) % Baso % (Auto) 0 (0-1) % Sodium 140 (140-148) mmol/L Potassium 3.3 L (3.6-5.2) mmol/L Chloride 101 (100-108) mmol/L Carbon Dioxide 30 (21-32) mmol/L Anion Gap 12.3 (5.0-14.0) mmol/L BUN 26 H D (7-18) mg/dL Creatinine 1.3 H (0.6-1.0) mg/dL Est Cr Clr Drug Dosing 41.40 mL/min Estimated GFR (MDRD) 43 L (>60) Glucose 129 H (74-106) mg/dL Calcium 8.4 L (8.5-10.1) mg/dL C-Reactive Protein 0.94 H (0.0-0.3) mg/dL Departure - Departure Time of Disposition: 21:33 Disposition: Admitted As Inpatient 66 Condition: good Clinical Impression: Wound dehiscence Forms: ED Department Discharge - My Orders Last 24 Hours: My Active Orders 02/20/17 21:30 Peripheral IV Care [RC] . DIRECTED Sodium Chloride 0.9% [Saline Flush] 10 ml FLUSH ASDIRECTED PRN Peripheral IV Insertion Adult [OM.PC] Urgent - Assessment/Plan Last 24 Hours: My Active Orders 02/20/17 21:30 Peripheral IV Care [RC] . DIRECTED Sodium Chloride 0.9% [Saline Flush] 10 ml FLUSH ASDIRECTED PRN Peripheral IV Insertion Adult [OM.PC] Urgent Plan: Assessment Acuity = acute Site and laterality = surgical wound infection with dehiscence postop day 18 status post lumbar surgery with anterior approach Etiology = suspicious for bacterial cause Manifestations = none Location of injury = home Lab values = WBC mildly elevated 11.3 consistent leukocytosis potassium low at 2.3 consistent hypokalemia creatinine elevated at 1.3 consistent with chronic renal failure stage GIIIB, CRP mildly elevated at 0.94 Plan Called and discussed case with Dr. Jason Rader general surgeon steward/stewardess economy class recommend hospital admission he will evaluate the patient in the hospital was start antibiotics of Zyvox and meropenem . This note was dictated using [employer] voice recognition software please call with any questions.
[2017-02-20] MEDS ORDERED: Sodium Chloride 0.9% 10 ML Syringe FLUSH PRN (21:30)
[2017-02-20] MEDS ORDERED: Ondansetron 4 MG/2 ML SDV IV PRN (21:35)
[2017-02-20] MEDS ORDERED: Linezolid 600 MG in Premix Bag 1 BAG IV SCH (21:45)
[2017-02-20] MEDS: Lactated Ringers 1,000 ML IV SCH (22:03)
[2017-02-20] MEDS: HYDROmorphone 0.5 MG/0.5 ML Syringe IVPUSH PRN (22:21)
[2017-02-21] MEDS: HYDROmorphone 0.5 MG/0.5 ML Syringe IVPUSH PRN (04:25)
[2017-02-21] MEDS: Lactated Ringers 1,000 ML IV SCH (07:31)
[2017-02-21] MEDS ORDERED: Acetaminophen/Butalbital/Caffeine 325-50-40 MG Tab PO PRN (07:56)
[2017-02-21] MEDS ORDERED: Dextrose 5%-Lactated Ringers 1,000 ML IV SCH (08:00)
[2017-02-21] MEDS: Loratadine 10 MG Tab PO SCH (09:41)
[2017-02-21] MEDS: Pantoprazole 40 MG Tab.CR PO SCH (09:41)
[2017-02-21] MEDS: Venlafaxine 75 MG Cap.ER PO SCH ×2 (09:42→21:11)
[2017-02-21] MEDS: Levothyroxine 100 MCG, Levothyroxine 25 MCG PO SCH ×2 (09:43)
[2017-02-21] MEDS: Pregabalin 75 MG Cap PO SCH ×2 (09:46→21:15)
[2017-02-21] MEDS: Linezolid 600 MG in Premix Bag 1 BAG IV SCH ×2 (10:59→22:18)
[2017-02-21] MEDS: oxyCODONE 5 MG Tab PO PRN ×3 (11:57→21:11)
[2017-02-21] MEDS ORDERED: Potassium Chloride 20 MEQ Tab.ER PO ONE (17:48)
[2017-02-22] MEDS: Levothyroxine 100 MCG, Levothyroxine 25 MCG PO SCH ×2 (06:57)
[2017-02-22] MEDS: Pantoprazole 40 MG Tab.CR PO SCH (06:57)
[2017-02-22 07:03] VITALS: BP 136/97
--- NOTE | 2017-02-22 07:55 | PN ---
DATE OF SERVICE: 02/21/2017 The patient has been afebrile with stable vital signs. She was admitted overnight with some draining seroma from the left lower paramedian abdominal incision. This has some redness around it, but not any real spreading cellulitis, just probably more of a colonization of a seroma that is persistently draining. The wound was opened up at the bedside, which will facilitate in care and we will begin teaching the patient wound care instructions. The cultures were obtained and we will add some antibiotics to the equation. Given the patient's recent hardware placement in her lumbar spine, it's notable that she has been afebrile throughout the hospitalization with a minimally elevated white count of 11,300 yesterday and is 9800 today, overall appears to be doing well. We will teach the patient wound care today. Tailor the antibiotics based on the Gram stain and to probably be discharged home. Tomorrow we'll restart her usual medications. Jason Rader MD /[id number]
[2017-02-22] MEDS: Venlafaxine 75 MG Cap.ER PO SCH (08:27)
[2017-02-22] MEDS: Loratadine 10 MG Tab PO SCH (08:27)
[2017-02-22] MEDS: Pregabalin 75 MG Cap PO SCH (08:30)
--- NOTE | 2017-02-23 03:37 | DISCH ---
ADMISSION DIAGNOSES: Wound dehiscence status post lumbar and lumbosacral fusion right anterior approach, sacroiliac joint dysfunction on right side, spondylolisthesis of L5-S1, pain management under chronic pain agreement, disk degeneration, lumbar sacral spondylosis without myelopathy, history of breast cancer, anxiety, GERD, tobacco use disorder, hypothyroidism. DISCHARGE DIAGNOSES: Colonized seroma without infection of anterior abdominal incision, low magnesium. HISTORY: Zelda Chao is a 51-year-old female who presented to the emergency room on 02/20/2017. She is postop day 18 at that time for lumbar surgery anterior approach. Zelda had her mitesh removed on 02/15/2017 and she was put on doxycycline. There was some redness and dried skin that was peeling on each side of the incision. At that time, there was no drainage and no opening of the incision. After evaluation, she was admitted to the hospital. Wound did completely dehisce and has been packed with 4 x 4s twice daily. She was started on Zyvox and meropenem. The meropenem was stopped yesterday. She continued on Zyvox. She has been on doxycycline 100 mg b.i.d. since 02/15/2017. She reports pain on the pain scale of 1 to 10 as a 1/10 this morning. REVIEW OF SYSTEMS: CONSTITUTIONAL: Denies any fever, chills, night sweats, or fatigue. HEART: No chest pain, shortness of breath. LUNGS: No cough. ABDOMEN: Negative. Pain 1/10, incisions open, dressings dry and intact. : No UTI signs and symptoms. EXTREMITIES: Remains to have that left leg weakness and tingling. BACK: Negative for pain, but does report some stiffness. SKIN: Without rash. NEURO: Intact. PSYCHIATRIC: Negative. OBJECTIVE: GENERAL: Zelda Chao is a 51-year-old female. VITAL SIGNS: Height 5 feet 3 inches. Weight is 172 pounds. TPR 97.5, 96, 16. Blood pressure 136/97. HEENT: Negative. NECK: Supple. HEART: Regular rate and rhythm. LUNGS: Clear. ABDOMEN: Dressings dry and intact. Abdominal binder is on. EXTREMITIES: Without peripheral edema. NEURO: Intact. SKIN: Without rash. PSYCHIATRIC: Mood and affect appropriate. DISPOSITION: Discharged to home. CONDITION: Stable and improving. FOLLOWUP: With Jason Rader MD at [facility] on 02/24/2017 at 8:15 a.m. MEDICATIONS: Home medications: Magnesium oxide 400 mg p.o. daily, #60. She was taking prior to hospitalization kagtxhjrmq-mtqwfkvqxatux-uhigkeph 50/325/40 one tablet every 4 hours p.r.n. headache, doxycycline 100 mg oral q.12 hours finish supply she has, levothyroxine 125 mcg daily, Claritin-D every 24 hours one daily, Daypro 1200 mg daily, Protonix 40 mg daily, Lyrica 75 mg twice daily, Venlafaxine ER 75 mg oral twice daily, Atarax 25 mg oral 3 times a day, oxycodone 5 mg oral every 4 hours. DIET: After discharge is regular diet as tolerated. ACTIVITY: As tolerated. Orders prior to admission: She is to wear the back brace. Driving, do not drive on pain medication. Keep operative site clean and dry. Change dressing twice daily as directed in the hospital. Notify provider if any fever, increased pains
== END 2017-02-22 10:05 | disposition home or self-care (01) | DRG 909 ==
LOC: JP.ED 19:48 → JP.MS 21:35 → OBSVTOIN 02-21 07:15
PROVIDERS: ADMIT Surgery; ATTEND Surgery
PROC: 0W9F0ZX Drainage of Abdominal Wall, Open Approach, Diagnostic (ICD-10-PCS; principal; 2017-02-21)
DX: T81.31XA Disruption of external operation (surgical) wound, not elsewhere classified, initial encounter (principal); Z98.890 Other specified postprocedural states; E03.9 Hypothyroidism, unspecified; F17.210 Nicotine dependence, cigarettes, uncomplicated; F41.9 Anxiety disorder, unspecified; M54.9 Dorsalgia, unspecified; G89.29 Other chronic pain; M79.7 Fibromyalgia; G43.909 Migraine, unspecified, not intractable, without status migrainosus; H54.7 Unspecified visual loss; Z85.3 Personal history of malignant neoplasm of breast; Z88.2 Allergy status to sulfonamides; Z88.8 Allergy status to other drugs, medicaments and biological substances; Z98.1 Arthrodesis status; M43.17 Spondylolisthesis, lumbosacral region; M53.3 Sacrococcygeal disorders, not elsewhere classified
CPT/HCPCS: 36415; 80048; 80053; 83735; 84100; 85025; 86140; 87070; 87075; 87077; 87186; 87205; 96361; 96365; 96367; 96374; 96375; 99283-25; A9270-GY; G0378; J1170; J2020; J2185; J7042; J7050; J7120

== ENCOUNTER 2024-08-17 15:44 | Emergency (ER) | payer MEDICAID ==
[2024-08-17 17:12] LABS: BASOPHILS ABSOLUTE AUTO 0.08 K/uL (0.00-0.10); BASOPHILS PERCENT AUTO 0.5 % (0.1-1.3); EOSINOPHILS ABSOLUTE AUTO 0.15 K/uL (0.00-0.40); HEMATOCRIT 43.6 % (34.3-46.0); HEMOGLOBIN 14.9 g/dL (11.2-15.5); IMMATURE GRAN ABSOLUTE AUTO 0.05 K/uL (0.00-0.23); IMMATURE GRAN PERCENT AUTO 0.3 % (0.0-0.7); LYMPHOCYTES ABSOLUTE AUTO 1.47 K/uL (0.8-3.3); LYMPHOCYTES PERCENT AUTO 9.6 % (11.4-47.7); MEAN CORPUSCULAR HEMOGLOBIN 30.6 pg (31.6-35.5); MEAN CORPUSCULAR HGB CONC 34.2 g/dL (31.6-35.5); MEAN CORPUSCULAR VOLUME 89.5 fL (81.4-99.0); MONOCYTES ABSOLUTE AUTO 0.68 K/uL (0.20-0.90); MONOCYTES PERCENT AUTO 4.5 % (3.3-12.6); NEUTROPHILS ABSOLUTE AUTO 12.84 K/uL (1.0-7.6); NEUTROPHILS PERCENT AUTO 84.1 % (40.0-78.1); PLATELET COUNT,PLT 239 K/uL (130-375); RED BLOOD CELL COUNT 4.87 M/uL (3.77-5.24); WHITE BLOOD CELL COUNT,WBC 15.3 K/uL (3.2-11.0)
[2024-08-17 17:27] LABS: CALCIUM 9.6 mg/dL (8.5-10.1); CREATININE 0.7 mg/dL (0.6-1.0); EST CRCL DRUG DOSING (CG) 70.7 mL/min; POTASSIUM,K 3.5 mmol/L (3.6-5.2)
[2024-08-17 17:28] LABS: ANION GAP 12.5 mmol/L (5.0-14.0)
[2024-08-17 17:49] LABS: CORONAVIRUS COVID-19 NAA NEGATIVE (NEGATIVE); INFLUENZA A NAA NEGATIVE (NEGATIVE); INFLUENZA B NAA NEGATIVE (NEGATIVE); RESPIRATORY SYNCYTIAL VIR NAA NEGATIVE (NEGATIVE)
[2024-08-17 18:46] VITALS: BP 180/91; PULSE 90
== END 2024-08-17 18:28 | disposition home or self-care (01) ==
LOC: JP.ED 15:44
DX: J18.9 Pneumonia, unspecified organism (principal); E03.9 Hypothyroidism, unspecified; Z88.2 Allergy status to sulfonamides; Z88.8 Allergy status to other drugs, medicaments and biological substances; Z79.890 Hormone replacement therapy; Z79.899 Other long term (current) drug therapy; Z90.49 Acquired absence of other specified parts of digestive tract; Z90.710 Acquired absence of both cervix and uterus
CPT/HCPCS: 0241U; 36415; 71046; 80048; 85025; 99285; 99284